=== PATIENT | female | born 2000 | race Caucasian/White ===

== ENCOUNTER 2024-06-02 17:46 | Emergency (ER) | payer OTHER, SELFPAY ==
[2024-06-02 17:49] VITALS: BP 131/73
[2024-06-02 17:57] VITALS: BP 131/73; BMI 28.9
[2024-06-02 18:00] VITALS: BP 117/68
[2024-06-02] MEDS: MAGNESIUM SULFATE 50 IV (18:02)
[2024-06-02] MEDS: REGLAN 10 MG IV (18:02)
[2024-06-02] MEDS: TORADOL 15 MG IV (18:03)
[2024-06-02] MEDS: BENADRYL 12.5 MG IV (18:04)
--- NOTE | 2024-06-02 18:21 | ED.GENMED ---
History of Present Illness
General
Chief Complaint: Headache
Time Seen by Provider: 06/02/24 17:47
History of Present Illness
History of Present Illness:
23-year-old female presents to the emergency department for evaluation of intractable migraine headache for the past 9 days. Patient has a history of migraines and this feels similar, has taken naproxen without relief. She was previously on
nortriptyline as well as Topamax but she stopped these disease felt to be ineffective. Typically has done well with IV migraine cocktails in the ER
Past History
Past History
ED Past Medical History: Cancer
ED Past Surgical History: Other
Social History
Tobacco: Non-smoker
Alcohol: None
Personal: Single
Living: with family
Employment: Student
Family History
Family History: Other
Review of Systems
Review of Systems
Allergies reviewed?: Yes
All Other Systems: ROS reviewed and negative except as documented in HPI and ROS
Phy Exam
Physical Exam
Physical Exam:
GEN: Well appearing, NAD, WDWN
HEENT: Oral mucosa moist, no scleral icterus
Cardiac: Regular rate
Lung: No respiratory distress, no tachypnea
MSK: No gross deformity or injuries
Skin: Good color, no pallor or jaundice, no rashes
Neuro: AO x3, moves all extremities freely
Psych: Calm, cooperative
Course
Orders/Labs/Results
Orders:
Orders
06/02/24 17:48
Ketorolac [Toradol] 15 mg IV NOW STA
Magnesium Sulfate 2 Gram/50 ml [Magnesium Sulfate] 2 gram in 50 ml IV NOW
Metoclopramide [Reglan] 10 mg IV NOW STA
06/02/24 18:03
Diphenhydramine [Benadryl] 12.5 mg IV NOW STA
Vital Signs
Initial and Last Documented VS:
Initial Vital Signs
BP
131/73
06/02/24 17:49
Last Documented Vital Signs
Temp Pulse Resp BP Pulse Ox
98 F 55 20 117/68 98
06/02/24 17:57 06/02/24 18:15 06/02/24 18:15 06/02/24 18:00 06/02/24 18:15
MDM/Problems Addressed
MDM/Problems Addressed:
Patient with no red flags warranting imaging, symptoms resolved after treatment in the ED discharged in stable condition
*Critical Care Note
Total Time (30-74mins, 75-104mins- exclusive of procedures): Not Applicable
ED Attending Note
-
Portions of this chart may have been created with voice recognition software.� Occasional wrong word or��sound alike� substitutions may have occurred due to the inherent limitations of voice recognition software.
Discharge Plan
Departure
Patient Disposition: Home (Routine Discharge)
Date of Disposition: 06/02/24
Time of Disposition: 19:40
Patient with high blood pressure during this ER visit?: No
Discharge Problem:
Migraine
Instructions: Migraines (DC)
Prescriptions:
No Action
ondansetron 4 MG tablet,disintegrating
4 mg PO QIDPRN PRN (Reason: nausea/vomiting) Qty: 20 0RF
Referrals:
Clau Holden MD [Family Provider] -
Interventions
Interventions:
*General Assessment Last Done: 06/02/24 17:57
*Neglect/Abuse Screening Last Done: 06/02/24 17:57
ED- Fall Risk Assessment Last Done: 06/02/24 18:19
*Nursing Disposition Last Done: 06/02/24 20:00
ED- Neurological Assessment Last Done: 06/02/24 18:19
Discharge Date and Time
Discharge Date/Time: 06/02/24 20:00
Print Language: ITALIAN
== END 2024-06-02 20:00 | disposition home or self-care (01) ==
LOC: EMR 17:46
PROVIDERS: EMERGENCY PHYSICIAN Student in an Organized Health Care Education/Training Program; FAMILY PHYSICIAN Internal Medicine
DX: G43.909 Migraine, unspecified, not intractable, without status migrainosus (principal)
CPT/HCPCS: 96365; 96375; 99284

== ENCOUNTER 2024-10-28 16:17 | Emergency (ER) | payer OTHER, SELFPAY ==
[2024-10-28 16:28] VITALS: BMI 27.1
--- NOTE | 2024-10-28 16:39 | ED.GENMED ---
History of Present Illness
General
Chief Complaint: Vaginal Bleeding
Time Seen by Provider: 10/28/24 16:22
History of Present Illness
History of Present Illness:
Patient is a 24-year-old woman with history of leukemia presenting to the emergency department with vaginal bleeding. Patient states she had heavy menses before she had her IUD placed. She had her IUD placed in 2022. Since then she gets her
period every month and it last about 10 days but is spotting and only needs a light tampon. This past. Has been ongoing for 7 days and has been heavy with clots. She switches out her tampon every 3 hours. Denies any history of easy bruising
bleeding or blood disorders. This is her first time having a heavy. Since the IUD placement. She is sexually active. No traumatic injuries. She was started on the medication called Qulipta for her migraines about 2 months ago. She denies any
lightheadedness dizziness or near syncopal events.
Past History
Past History
ED Past Medical History: Cancer
ED Past Surgical History: Other
Social History
Tobacco: Non-smoker
Alcohol: None
Personal: Single
Living: with family
Employment: Student
Family History
Family History: Other
Phy Exam
Physical Exam
Physical Exam:
GENERAL: in no acute distress
HEENT: normocephalic, extraocular movements intact, moist oral mucosa
NECK: normal inspection
RESPIRATORY: no respiratory distress, clear to auscultation bilaterally
CARDIOVASCULAR: regular rate and rhythm
ABDOMEN/: soft, non-distended, non-tender to palpation, no rebound or guarding
EXTREMITIES: non-tender, no edema/swelling
NEUROLOGIC: awake and alert, moves all extremities
SKIN: warm
Course
Orders/Labs/Results
Orders:
Orders
10/28/24 16:33
Test Result ONCE
US Pelvis W Transvag Combined Urgent
Comment:
Reason For Exam: vag bleeding
10/28/24 16:37
Basic Metabolic Panel Urgent
Complete Blood Count/With Diff Urgent
HCG, Serum Qualitative Screen Urgent
Abnormal Lab Results
10/28/24
16:37
Glucose 117 H mg/dl
(70-99)
10/28/24 16:37
10/28/24 16:37
Vital Signs
Initial and Last Documented VS:
Initial Vital Signs
Temp Pulse Resp Pulse Ox
97.6 F 76 18 100
10/28/24 16:22 10/28/24 16:22 10/28/24 16:22 10/28/24 16:22
Last Documented Vital Signs
Temp Pulse Resp Pulse Ox
97.6 F 76 18 100
10/28/24 16:22 10/28/24 16:22 10/28/24 16:22 10/28/24 16:22
MDM/Problems Addressed
Differential Diagnosis Includes:
Patient is a 24-year-old woman presenting to the emergency department with heavy menses. Vitals are unremarkable and exam is reassuring. Differential is broad but consists of menstrual irregularity versus fibroid versus adenoma versus IUD
migration though less likely. Will check blood work to evaluate hemoglobin, test and pelvic ultrasound. Will discuss with OB regarding outpatient medications such as medroxyprogesterone versus TXA.
*Critical Care Note
Total Time (30-74mins, 75-104mins- exclusive of procedures): Not Applicable
Update Note
Update Note:
Blood work notable for normal hemoglobin. Ultrasound negative. I did discuss with on-call gynecology who recommended Provera. Discussed with patient. She does state that the bleeding has slowed down so she might hold off on taking the medication
until tomorrow. Discussed risk versus benefit with patient. She will follow-up with her drug coordinator as well. She return precautions given. Will discharge at this time
ED Attending Note
-
Portions of this chart may have been created with voice recognition software.� Occasional wrong word or��sound alike� substitutions may have occurred due to the inherent limitations of voice recognition software.
Discharge Plan
Departure
Patient Disposition: Home (Routine Discharge)
Date of Disposition: 10/28/24
Time of Disposition: 19:15
Patient with high blood pressure during this ER visit?: No
Discharge Problem:
Vaginal bleeding
Instructions: Heavy Periods (DC)
Prescriptions:
New
medroxyprogesterone [Provera] 5 mg tablet
See Rx Instructions .ROUTE .COMPLEX Qty: 18 0RF
Rx Instructions:
5mg tid x3days. Bidx3 days and daily for 3days
No Action
ondansetron 4 MG tablet,disintegrating
4 mg PO QIDPRN PRN (Reason: nausea/vomiting) Qty: 20 0RF
Referrals:
Clau Holden MD [Family Provider] -
Activity Restrictions/Additional Instructions:
You were seen in the Emergency Department today for heavy period. While you were here we performed blood work, which was reassuring. Please take the medication as prescribed. For the first 3 days you will take it 3 times a day. For the next 3
days you will take it twice a day. For the last 3 days you will take it once a day. Please call your [facility] for follow-up as well.
We would like for you to follow up with your primary care physician for further evaluation. If you experience fever, worsening of your symptoms, or develop any other new or concerning symptoms, please return to the Emergency Department immediately.
Please see the attached sheet for additional information.
Thank you for choosing us for your care!
Interventions
Interventions:
*Risk Screen - Suicide Last Done: 10/28/24 16:26
*General Assessment Last Done: 10/28/24 16:26
*Neglect/Abuse Screening Last Done: 10/28/24 16:26
*ED- Fall Risk Assessment Last Done: 10/28/24 16:26
*ED COVID-19 Vaccine History Last Done: 10/28/24 16:22
ED-Female Genitourinary Assessment Last Done: 10/28/24 16:29
Discharge Date and Time
Print Language: [place]
[2024-10-28 16:44] LABS: % Basophils 1.4 % (0-2); % Eosinophils 0.8 % (0-6); % Immature Granulocytes 0.3 % (0-0.5); % Lymphocytes 33.8 % (20.5-51.1); % Monocytes 7.3 % (1.7-9.3); % Neutrophils 56.4 % (42.2-75.2); Absolute Basophils 0.1 10^3/uL (0-0.2); Absolute Eosinophils 0.1 10^3/uL (0-0.7); Absolute Lymphocytes 2.2 10^3/uL (1.2-3.4); Absolute Monocytes 0.5 10^3/uL (0.1-0.6); Absolute Neutrophils 3.7 10^3/uL (1.4-6.5); Hematocrit 42.1 % (37.0-47.0); Hemoglobin 15.1 g/dL (12.0-16.0); Mean Corp Hgb Conc. 35.9 g/dL (33.0-37.0); Mean Corpuscular Hgb 30.9 pg (27.0-31.0); Mean Corpuscular Volume 86.3 fL (81.0-99.0); Mean Platelet Volume 8.9 fL (7.4-10.4); Nucleated Red Blood Cells % 0 %; Platelet Count 272 10^3/uL (130-400); Red Blood Cell Count 4.88 10^6/uL (4.20-5.40); Red Cell Dist. Width 11.9 % (11.5-14.5); White Blood Cell Count 6.6 10^3/uL (4.8-10.8)
[2024-10-28 16:56] LABS: HCG, Serum Qualitative Screen Negative
[2024-10-28 17:06] LABS: Blood Urea Nitrogen 13 mg/dl (7-17); Carbon Dioxide 27 mmol/L (22-30); Chloride 103 mmol/L (98-107); Estimated Creatinine Clearance 102 ml/min; Glucose 117 mg/dl (70-99); Potassium 3.6 mmol/L (3.5-5.1); Sodium 140 mmol/L (135-145); eGFR > 60.00
== END 2024-10-28 19:23 | disposition home or self-care (01) ==
LOC: EMR 16:17
PROVIDERS: EMERGENCY PHYSICIAN Student in an Organized Health Care Education/Training Program; FAMILY PHYSICIAN Internal Medicine
DX: N92.0 Excessive and frequent menstruation with regular cycle (principal)
CPT/HCPCS: 99284; 76830; 76856; 80048; 84703; 85025